=== PATIENT | female | born 1995 | race Caucasian/White ===

== ENCOUNTER 2016-05-21 20:00 | Emergency (ER) | payer BC ==
[2016-05-21 20:17] VITALS: BP 138/77
== END 2016-05-21 20:57 | disposition left against medical advice (07) ==
LOC: ED 20:00
DX: R50.9 Fever, unspecified (principal); Z53.21 Procedure and treatment not carried out due to patient leaving prior to being seen by health care provider

== ENCOUNTER 2016-05-21 21:19 | Emergency (ER) | payer BC ==
[2016-05-21 21:53] VITALS: BP 133/69
--- NOTE | 2016-05-21 22:07 | UC ---
UC General HPI - HPI Summary HPI Summary: patient has fever, cough,sore throat, muscle aches, photosensitivity, denies neck pain, - History of Current Complaint Chief Complaint: UCRespiratory Stated Complaint: COUGH,FEVER,LIGHT SENSITIVITY Time Seen by Provider: 05/21/16 21:52 Hx Obtained From: Patient Onset/Duration: Sudden Onset, Lasting Days Timing: Constant Onset Severity: Mild Current Severity: Severe Associated Signs & Symptoms: Positive: Cough, Fever, Headache - Allergy/Home Medications Allergies/Adverse Reactions: Allergies Allergy/AdvReac Type Severity Reaction Status Date / Time Clindamycin Allergy Vomiting Verified 05/21/16 21:54 Home Medications: Home Medications Control Pill 05/21/16 [History] Guanfacine HCl (Adhd) [Intuniv] 3 mg PO 05/21/16 [History] Methylphenidate HCl [Concerta] 54 mg PO 05/21/16 [History] PMH/Surg Hx/FS Hx/Imm Hx Previously Healthy: Yes Endocrine History Of: Denies: Diabetes, Thyroid Disease Cardiovascular History Of: Denies: Cardiac Disorders, Hypertension Respiratory History Of: Denies: COPD, Asthma GI/ History Of: Denies: Ulcer - Surgical History Surgical History: None - Family History Known Family History: Positive: Hypertension - Social History Alcohol Use: Occasionally Substance Use Type: None Smoking Status (MU): Never Smoked Tobacco Review of Systems Constitutional: Fever, Fatigue Skin: Negative Eyes: Negative ENT: Sore Throat, Ear Ache, Nasal Discharge Respiratory: Cough Cardiovascular: Negative Gastrointestinal: Negative Genitourinary: Negative Motor: Negative Neurovascular: Negative Musculoskeletal: Myalgia Neurological: Headache Psychological: Negative All Other Systems Reviewed And Are Negative: Yes Physical Exam Triage Information Reviewed: Yes Appearance: Well-Nourished, Ill-Appearing, Pain Distress Vital Signs: Initial Vital Signs Temp 100.4 F 05/21/16 21:49 Pulse 79 05/21/16 21:49 Resp 18 05/21/16 21:49 BP 133/69 05/21/16 21:49 Pulse Ox 98 05/21/16 21:49 Vital Signs Reviewed: Yes Eye Exam: Normal Eyes: Positive: Conjunctiva Clear ENT Exam: Normal ENT: Positive: Pharyngeal erythema, Nasal congestion, Nasal drainage, TMs normal , Tonsillar swelling, Tonsillar exudate Dental Exam: Normal Neck exam: Normal Neck: Positive: Supple, Nontender, No Lymphadenopathy Respiratory Exam: Normal Respiratory: Positive: Chest non-tender, Lungs clear, Normal breath sounds Cardiovascular Exam: Normal Cardiovascular: Positive: RRR, No Murmur, Pulses Normal Abdominal Exam: Normal Abdomen Description: Positive: Nontender, No Organomegaly, Soft Bowel Sounds: Positive: Present Musculoskeletal Exam: Normal Musculoskeletal: Positive: Strength Intact, ROM Intact, No Edema Neurological Exam: Normal Neurological: Positive: Alert Psychological Exam: Normal Skin Exam: Normal Course/Dx - Course Course Of Treatment: hx obtained, exam performed, meds reviewed, rapid flu and strep obtained and are negative - Differential Dx - Multi-Symptom Provider Diagnoses: viral syndrome. fever. pharyngitis Discharge - Discharge Plan Condition: Stable Disposition: HOME Patient Education Materials: Viral Syndrome (ED) Additional Instructions: 1. take the cough syrup tonnight before bed 2. Start the prednisone tomorrow 3. start the flonase after you have finished the prednisone 4. Increase fluid intake and get plenty of rest. 5. COntinue with ibuprofen and tylneol for pain and fever.
[2016-05-21] MEDS ORDERED: Ibuprofen TAB* 600 MG PO ONE (22:17)
[2016-05-21] MEDS ORDERED: guaiFENesin/CODIEN 100MG-10MG* 5 ML UDC PO ONE (22:21)
== END 2016-05-21 22:41 | disposition home or self-care (01) ==
LOC: UCEAST 21:19
DX: B34.9 Viral infection, unspecified (principal); R50.9 Fever, unspecified; J02.9 Acute pharyngitis, unspecified; Z88.1 Allergy status to other antibiotic agents
CPT/HCPCS: 87651; 99202; A9270-GY; G0463